=== PATIENT | male | born 1955 | race African-American/Black ===

== ENCOUNTER 2019-05-24 03:13 | Emergency (ER) | payer BC, OTHER ==
[~2019-05-24] VITALS: Ht 185.4 cm; Wt 131.5 kg
[2019-05-24] MEDS ORDERED: NS IV 1000 ML 1,000 ML IV SCH (03:25)
[2019-05-24] MEDS ORDERED: MECLIZINE 25 MG (ANTIVERT) TAB PO ONE (03:30)
--- OUTSIDE RECORDS SUMMARY | 2019-05-24 03:32 | XMS REPORT | Continuity of Care Document ---
Author Organization Unknown Address Unknown Allergies Active Description Code Type Severity Reaction Onset Reported/Identified Relationship to Patient Clinical Status Yes No Known Allergies [id number] N/A N/A Medications There is no data. Problems Date Dx Coded Attending Type Code Diagnosis Diagnosed By 09/09/2017 P R1084 Generalized abdominal pain 09/09/2017 P R1084 Generalized abdominal pain Procedures There is no data. Results There is no data. Encounters ACCT No. Visit Date/Time Discharge Status Pt. Type Provider Facility Loc./Unit Complaint [id number] 08/25/2018 16:36:11 08/25/2018 23:59:59 [facility] Outpatient Dorota Diaz [id number] 01/24/2019 11:53:18 Document Registration [id number] 01/11/2019 09:00:02 Document Registration [id number] 12/28/2017 11:08:45 Document Registration [id number] 09/09/2017 12:30:18 Document Registration [id number] 09/09/2017 12:25:13 Document Registration
--- NOTE | 2019-05-24 03:40 | ED General ---
General Chief Complaint: Dizziness/Syncope Stated Complaint: DIZZY Source of Information: Patient Exam Limitations: No Limitations History of Present Illness Date Seen by Provider: May 24, 2019 Time Seen by Provider: 03:30 Initial Comments 63-year-old male presents with dizziness. He describes the dizziness as the alejandra were spinning. Reports it started around 2:30 when he got up out of bed to work. Reports it gets worse when he sits or stands up, better if he lays down. Does not change with head movement. He denies any chest pain, nausea, vomiting, headache, shortness of breath or any other systemic complaints. Does not report any new medication changes. he also reports it improves if he stands there for a minute Allergies and Home Medications Allergies Coded Allergies: No Known Drug Allergies (Unverified , 05/24/19) Patient Home Medication List Home Medication List Reviewed: Yes Review of Systems Review of Systems Constitutional: No chills; dizziness; No fever EENTM: other (no tinnitus); No hearing loss, No ear pain, No blurred vision, No double vision Respiratory: no symptoms reported Cardiovascular: no symptoms reported Gastrointestinal: no symptoms reported Genitourinary: no symptoms reported Musculoskeletal: no symptoms reported Skin: no symptoms reported Past Pahhnty-Nbawtj-Eurfdl Hx Past Med/Social Hx: Reviewed Nursing Past Med/Soc Hx Patient Social History Recent Foreign Travel: No Contact w/Someone Who Travel: No Physical Exam Vital Signs Vital Signs - First Documented 05/24/19 03:38 Temp 98.5 Pulse 65 Resp 10 B/P (MAP) 190/103 (132) Pulse Ox 97 O2 Delivery Room Air Capillary Refill : Height, Weight, BMI Height: '" Weight: lbs. oz. 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 Norm as Tested Skin: Normal Color, Warm/Dry Progress/Results/Core Measures Suspected Sepsis SIRS Temperature: Pulse: Respiratory Rate: Laboratory Tests 05/24/19 03:29: White Blood Count 4.8 Blood Pressure / Mean: Laboratory Tests 05/24/19 03:29: Creatinine 1.13, Platelet Count 198, Total Bilirubin 0.8 Results/Orders Lab Results Laboratory Tests Test 05/24/19 03:29 Range/Units White Blood Count 4.8 4.3-11.0 10^3/uL Red Blood Count 4.51 4.35-5.85 10^6/uL Hemoglobin 13.3 13.3-17.7 G/DL Hematocrit 42 40-54 % Mean Corpuscular Volume 92 80-99 FL Mean Corpuscular Hemoglobin 30 25-34 PG Mean Corpuscular Hemoglobin Concent 32 32-36 G/DL Red Cell Distribution Width 12.7 10.0-14.5 % Platelet Count 198 130-400 10^3/uL Mean Platelet Volume 10.3 7.4-10.4 FL Neutrophils (%) (Auto) 74 42-75 % Lymphocytes (%) (Auto) 15 12-44 % Monocytes (%) (Auto) 7 0-12 % Eosinophils (%) (Auto) 4 0-10 % Basophils (%) (Auto) 0 0-10 % Neutrophils # (Auto) 3.5 1.8-7.8 X 10^3 Lymphocytes # (Auto) 0.7 L 1.0-4.0 X 10^3 Monocytes # (Auto) 0.3 0.0-1.0 X 10^3 Eosinophils # (Auto) 0.2 0.0-0.3 10^3/uL Basophils # (Auto) 0.0 0.0-0.1 10^3/uL Urine Color PALE YELLOW Urine Clarity CLEAR Urine pH 7.5 5-9 Urine Specific Evant 1.015 L 1.016-1.022 Urine Protein NEGATIVE NEGATIVE Urine Glucose (UA) NEGATIVE NEGATIVE Urine Ketones NEGATIVE NEGATIVE Urine Nitrite NEGATIVE NEGATIVE Urine Bilirubin NEGATIVE NEGATIVE Urine Urobilinogen 0.2 NORMAL MG/DL Urine Leukocyte Esterase NEGATIVE NEGATIVE Urine RBC (Auto) TRACE H NEGATIVE Urine RBC 0-2 /HPF Urine WBC RARE /HPF Urine Squamous Epithelial Cells RARE /HPF Urine Crystals NONE /LPF Urine Bacteria NEGATIVE /HPF Urine Casts NONE /LPF Urine Mucus NONE /LPF Urine Culture Indicated NO Sodium Level 140 135-145 MMOL/L Potassium Level 3.6 3.6-5.0 MMOL/L Chloride Level 101 98-107 MMOL/L Carbon Dioxide Level 25 21-32 MMOL/L Anion Gap 14 5-14 MMOL/L Blood Urea Nitrogen 20 H 7-18 MG/DL Creatinine 1.13 0.60-1.30 MG/DL Estimat Glomerular Filtration Rate > 60 BUN/Creatinine Ratio 18 Glucose Level 104 70-105 MG/DL Calcium Level 9.1 8.5-10.1 MG/DL Corrected Calcium 8.5-10.1 MG/DL Total Bilirubin 0.8 0.1-1.0 MG/DL Aspartate Amino Transf (AST/SGOT) 20 5-34 U/L Alanine Aminotransferase (ALT/SGPT) 17 0-55 U/L Alkaline Phosphatase 60 40-136 U/L Troponin I < 0.30 <0.30 NG/ML Total Protein 8.1 6.4-8.2 GM/DL Albumin 4.6 H 3.2-4.5 GM/DL My Orders Orders - DUMONT,MARIANNE L DO Ed Iv/Invasive Line Start (05/24/19 03:25) Ekg Tracing (05/24/19 03:25) Orthostatic Vital Signs (Adult (05/24/19 03:25) Cbc With Automated Diff (05/24/19 03:25) Comprehensive Metabolic Panel (05/24/19 03:25) Troponin I (05/24/19 03:25) Ua Culture If Indicated (05/24/19 03:25) Meclizine Tablet (Antivert Tablet) (05/24/19 03:30) Ed Iv/Invasive Line Start (05/24/19 03:25) Ns Iv 1000 Ml (Sodium Chloride 0.9%) (05/24/19 03:25) Vital Signs/I&O 05/24/19 03:38 Temp 98.5 Pulse 65 Resp 10 B/P (MAP) 190/103 (132) Pulse Ox 97 O2 Delivery Room Air Capillary Refill : Progress Note : Progress Note Patient feeling significantly better following treatment. He has no further episodes of dizziness. Patient will be discharged home in stable condition and should follow-up with primary care provider as needed. ECG Initial ECG Impression Date: May 24, 2019 Initial ECG Impression Time: 03:23 Initial ECG Rhythm: Normal Sinus Initial ECG Intervals LVH Comment NSR, LVH Departure Impression Primary Impression: Dizziness Disposition: 01 HOME, SELF-CARE Condition: Stable Departure-Patient Inst. Decision time for Depature: 05:00 Referrals: DEANA CRUZ MD (PCP) Primary Care Physician Patient Instructions: Dizziness, Nonvertigo, (DC), Heat Exhaustion and Heat Stroke (DC) MARIANNE DUMONT DO May 24, 2019 03:40
--- NOTE | 2019-05-24 04:10 | NUR ---
orthostatic [id number]-960/96, p-65,-sitting-193/108, p-66, -standing-215/106, p-67
[2019-05-24 04:25] LABS: BILIRUBIN,URINE NEGATIVE (NEGATIVE); CLARITY,URINE CLEAR; COLOR,URINE PALE YELLOW; GLUCOSE, URINE (UA) NEGATIVE (NEGATIVE); KETONES,URINE NEGATIVE (NEGATIVE); LEUKOCYTE ESTERASE ,URINE NEGATIVE (NEGATIVE); NITRITE,URINE NEGATIVE (NEGATIVE); PH,URINE 7.5 (5-9); PROTEIN,URINE NEGATIVE (NEGATIVE); UROBILINOGEN,URINE 0.2 MG/DL (NORMAL)
[2019-05-24 04:27] LABS: BACTERIA,URINE NEGATIVE /HPF; RBC,URINE 0-2 /HPF; SQUAMOUS EPITHELIAL CELL,UR RARE /HPF; WBC,URINE RARE /HPF
[2019-05-24 04:28] LABS: HEMATOCRIT 42 % (40-54); HEMOGLOBIN 13.3 G/DL (13.3-17.7); MEAN CORPUSCULAR HEMOGLOBIN 30 PG (25-34); MEAN CORPUSCULAR VOLUME 92 FL (80-99); WHITE BLOOD COUNT 4.8 10^3/uL (4.3-11.0)
[2019-05-24 04:29] LABS: BASOPHILS % (AUTO) 0 % (0-10); EOSINOPHILS # (AUTO) 0.2 10^3/uL (0.0-0.3); EOSINOPHILS % (AUTO) 4 % (0-10); LYMPHOCYTES # (AUTO) 0.7 X 10^3 (1.0-4.0); LYMPHOCYTES % (AUTO) 15 % (12-44); MEAN CORPUSCULAR HGB CONC 32 G/DL (32-36); MEAN PLATELET VOLUME 10.3 FL (7.4-10.4); MONOCYTES # (AUTO) 0.3 X 10^3 (0.0-1.0); MONOCYTES % (AUTO) 7 % (0-12); NEUTROPHILS # (AUTO) 3.5 X 10^3 (1.8-7.8); NEUTROPHILS % (AUTO) 74 % (42-75); PLATELET COUNT 198 10^3/uL (130-400); RED CELL DISTRIBUTION WIDTH 12.7 % (10.0-14.5)
[2019-05-24 04:46] LABS: BILIRUBIN,TOTAL 0.8 MG/DL (0.1-1.0); BUN/CREATININE RATIO 18; CALCIUM 9.1 MG/DL (8.5-10.1); CARBON DIOXIDE 25 MMOL/L (21-32); CHLORIDE 101 MMOL/L (98-107); CREATININE SERUM 1.13 MG/DL (0.60-1.30); GFR ESTIMATED > 60; GLUCOSE 104 MG/DL (70-105); POTASSIUM 3.6 MMOL/L (3.6-5.0); SODIUM 140 MMOL/L (135-145)
[2019-05-24 04:47] LABS: ALANINE AMINOTRANSFERASE 17 U/L (0-55); ALBUMIN 4.6 GM/DL (3.2-4.5); ALKALINE PHOSPHATASE 60 U/L (40-136); TOTAL PROTEIN 8.1 GM/DL (6.4-8.2)
[2019-05-24 05:12] VITALS: BP 170/114
== END 2019-05-24 05:12 | disposition home or self-care (01) ==
LOC: ER FS 03:14
DX: R42 Dizziness and giddiness (principal)
CPT/HCPCS: 36415; 80053; 81000; 84484; 85025; 93005; 93041